=== PATIENT | male | born 1990 | race Asian ===

== ENCOUNTER 2023-07-29 16:18 | Emergency (ER) | payer OTHER ==
[2023-07-29] MEDS ORDERED: Boostrix 0.5 ML (Tdap) VIAL (>/=7 yrs of age) ONE (16:50)
[2023-07-29] MEDS ORDERED: Bacitracin 1 PK ONE (16:50)
== END 2023-07-29 17:12 | disposition home or self-care (01) ==
LOC: NAV ERS 16:18
DX: S90.412A Abrasion, left great toe, initial encounter (principal); X58.XXXA Exposure to other specified factors, initial encounter
CPT/HCPCS: 90471; 90715; 99283

== ENCOUNTER 2024-06-03 19:28 | Emergency (ER) | payer OTHER ==
[2024-06-03] MEDS ORDERED: Orphenadrine Citrate 60 MG/2 ML VIAL ONE (19:45)
[2024-06-03] MEDS ORDERED: Ibuprofen 800 MG TAB ONE (19:45)
== END 2024-06-03 20:20 | disposition home or self-care (01) ==
LOC: NAV ERS 19:28
DX: S39.012A Strain of muscle, fascia and tendon of lower back, initial encounter (principal); V89.2XXA Person injured in unspecified motor-vehicle accident, traffic, initial encounter
CPT/HCPCS: 96372; 99283; J2360